=== PATIENT | male | born 1970 | race Caucasian/White ===

== ENCOUNTER 2018-06-23 12:10 | Inpatient (IN) | payer BC, SELFPAY ==
[~2018-06-23 12:10] MED LIST: Iopamidol 370 76% 100 ML VIAL ONE; Iopamidol 370 76% 50 ML VIAL FS ONE
[2018-06-23] MEDS ORDERED: Heparin 25,000 units/D5W 0 ML ONE (12:16)
[2018-06-23 12:38] LABS: #Lymphocytes 2.3 thou/uL (1.20-3.40); #Monocytes 0.7 thou/uL (0.11-0.59); #Neutrophils 8.8 thou/uL (1.40-6.50); %Basophils 0.2 % (0.0-1.0); %Eosinophils 0.3 % (0.0-10.0); %Lymphocytes 19.3 % (21.0-51.0); %Monocytes 5.6 % (0.0-10.0); %Neutrophils 74.6 % (42.0-75.0); Hemoglobin 15.5 g/dL (14.0-18.0); Mean Corpuscular Hemoglobin 29.9 pg (27.0-31.0); Mean Corpuscular Volume 87.8 fL (78.0-98.0); Mean Platelet Volume 8.2 fL (7.4-10.4); Platelet Count 325 thou/uL (130-400); RBC Distribution Width 11.8 % (11.5-14.5); Red Blood Cell (RBC) Count 5.19 mill/uL (4.70-6.10); White Blood Cell (WBC) Count 11.8 thou/uL (4.8-10.8)
[2018-06-23 12:41] LABS: Prothrombin Time 13.3 SEC (12.0-14.7)
[2018-06-23 12:42] LABS: PTT 27.4 SEC (22.9-36.1)
--- NOTE | 2018-06-23 12:42 | RAD ---
FPortable chest radiograph: 06/23/2018 COMPARISON: None available HISTORY:Chest pain FINDINGS: Heart and mediastinal contours unremarkable. The lungs appear clear. IMPRESSION: No acute findings.
[2018-06-23] MEDS ORDERED: Nitroglycerin 100MG/250ML BOT 250 ML ONE (12:49)
[2018-06-23] MEDS ORDERED: Heparin 10,000 UNITS/1 ML VIAL ONE (12:55)
[2018-06-23 12:58] LABS: ALT (SGPT) 28 U/L (8-55); AST (SGOT) 30 U/L (5-34); Albumin 4.5 g/dL (3.5-5.0); Alkaline Phosphatase 105 U/L (40-150); Anion Gap 13 mmol/L (10-20); BUN (Urea Nitrogen) 11 mg/dL (8.9-20.6); Bilirubin, Total 0.8 mg/dL (0.2-1.2); CK (CPK) 209 U/L (30-200); Calc. Creatinine Clearance 0 mL/min (70-130); Calcium 10.1 mg/dL (7.8-10.44); Carbon Dioxide 26 mmol/L (22-29); Chloride 100 mmol/L (98-107); Estimated GFR-MDRD 76; Glucose 475 mg/dL (70-105); Potassium 4.2 mmol/L (3.5-5.1); Protein, Total 7.5 g/dL (6.0-8.3); Sodium 135 mmol/L (136-145)
[2018-06-23] MEDS ORDERED: Fentanyl 100 MCG/2 ML VIAL ONE (13:05)
[2018-06-23] MEDS ORDERED: Adenosine 6 MG/2 ML VIAL ONE (13:08)
[2018-06-23] MEDS ORDERED: Aggrastat 12.5 MG/250 ML 250 ML ONE (13:08)
[2018-06-23] MEDS ORDERED: Nitroglycerin 0.4 MG TAB (25 Tab Bottle) SL PRN (13:27)
[2018-06-23] MEDS ORDERED: Morphine 4 MG/ML VIAL SLOW IVP PRN (13:27)
[2018-06-23] MEDS ORDERED: Aggrastat 12.5 MG/250 ML 250 ML IVPB SCH (13:30)
[2018-06-23] MEDS ORDERED: Sodium Chloride 0.9% 1,000 ML IV SCH (13:30)
[2018-06-23 16:41] VITALS: BMI 36.8
--- NOTE | 2018-06-23 16:54 | EKG ---
Test Reason : POST VSTENTS X 2-LAD Blood Pressure : / mmHG Vent. Rate : 108 BPM Atrial Rate : 108 BPM P-R Int : 146 ms QRS Dur : 098 ms QT Int : 372 ms P-R-T Axes : 061 094 024 degrees QTc Int : 498 ms Sinus tachycardia Rightward axis Anteroseptal infarct , possibly acute Lateral injury pattern * ACUTE [place] * Abnormal ECG No previous ECGs available Confirmed by JUAN PABLO PARKS, DR. Souza (4) on 06/23/2018 4:54:26 PM Referred By: SUKHDEEP Confirmed By:DR. Libby ALMEIDA MD
--- NOTE | 2018-06-23 19:59 | HP ---
CHIEF COMPLAINT: Chest pain. HISTORY OF PRESENT ILLNESS: Mr. Andrea is a pleasant 47-year-old white gentleman, who comes to the hospital for chest pain. He started having chest pain at 11:30 p.m. yesterday, shows up to the hospital about 1130 hours to 12 noon. EKG was done and showed ST elevations in the anterior leads with reciprocal changes already Q-waves on the anterior leads. He states that the pain started at 11:30 p.m. and it was pretty much unchanged until he came into the hospital. He was taken emergently to the catheterization lab, where he was found to have an occluded proximal LAD. This was wired and successfully stented with a drug-eluting stent. He felt improvement in his chest pain, and angiogram showed residual left circumflex disease, which was severe, and moderate disease in the mid RCA. This was left alone. He is in the ICU resting comfortably, pain-free at that time. PAST MEDICAL HISTORY: He has been told he is borderline diabetic, but he went on a diet and lost about 40 pounds and his sugars have improved. PAST SURGICAL HISTORY: 1. Hernia repair. 2. Left knee surgery. OUTPATIENT MEDICATIONS: None. ALLERGIES: NO KNOWN DRUG ALLERGIES. SOCIAL HISTORY: No alcohol, tobacco, or drugs. FAMILY HISTORY: Father had his first DE at age 45, has had 10 stents total, and has an AICD in place for weak heart. REVIEW OF SYSTEMS: A 12-point review of systems was done and was found to be negative unless stated in the history of present illness. PHYSICAL EXAMINATION: VITAL SIGNS: Temperature 98.3, pulse 115, respiratory rate 20, saturating 97% on room air, and blood pressure 136/86. GENERAL: Awake, alert, and oriented x3. No distress. HEENT: Normocephalic, atraumatic. LUNGS: Clear. CARDIOVASCULAR: S1 and S2. No S3 or S4. No murmurs or rubs. ABDOMEN: Soft. Positive bowel sounds. EXTREMITIES: No edema. SKIN: Warm and dry. LABORATORY DATA: Laboratory work was reviewed. CBC with a white count of 11, hemoglobin of 15, hematocrit of 45, platelet count of 325. Coags were reviewed. Chemistry showed a sodium of 135, otherwise unremarkable. Glucose was 475, creatinine was . CK-MB was 10. Initial troponin was 3.06, that was at noon. Albumin of 4.5. Chest x-ray showed no acute findings. EKG was reviewed. ASSESSMENT AND PLAN: 1. Acute anterior ST-elevation myocardial infarction. Late presentation at least 12 hours into the DE. 2. Severe ischemic cardiomyopathy, EF at around 20% on left ventriculogram with akinesis of the anterior and apical zuleta. 3. Elevated glucose: His sugar was in the 400 range on arrival. This could be a stress reaction. We will re-evaluate in the morning. 4. Significant family history of coronary artery disease. PLAN: 1. Aggrastat for 5 hours total, pull sheath 1 hour after Aggrastat has been done, and lie flat for 2 hours after that. 2. High dose statins. 3. Aspirin for life. 4. Brilinta for at least the next year. 5. We will start low-dose Coreg as he is tachycardic and blood pressure will allow. 6. We will start NORY inhibitor in the next 24 to 48 hours as blood pressure allows. 7. Echocardiogram pending. 8. PPI for stress ulcer prophylaxis. 9. Full code. 10. Disposition, pending clinical evolution, probably home in the next 3 to 4 days. Job ID: [id number]
[2018-06-23] MEDS: Atorvastatin Calcium 40 MG TAB PO SCH (20:22)
[2018-06-23 20:52] LABS: CKMB 92.7 ng/mL (0-6.6)
[2018-06-23] MEDS: TICAGRELOR 90 MG TABLET PO SCH (21:16)
[2018-06-24 04:59] LABS: #Lymphocytes 2.4 thou/uL (1.20-3.40); #Monocytes 1.3 thou/uL (0.11-0.59); #Neutrophils 9.3 thou/uL (1.40-6.50); %Basophils 0.2 % (0.0-1.0); %Eosinophils 0.3 % (0.0-10.0); %Lymphocytes 18.5 % (21.0-51.0); Hemoglobin 14.4 g/dL (14.0-18.0); Mean Corpuscular HGB CONC 33.8 g/dL (32.0-36.0); Mean Corpuscular Hemoglobin 29.6 pg (27.0-31.0); Mean Corpuscular Volume 87.5 fL (78.0-98.0); Mean Platelet Volume 8.3 fL (7.4-10.4); Platelet Count 293 thou/uL (130-400); Red Blood Cell (RBC) Count 4.87 mill/uL (4.70-6.10); White Blood Cell (WBC) Count 13.1 thou/uL (4.8-10.8)
[2018-06-24 05:25] LABS: ALT (SGPT) 41 U/L (8-55); AST (SGOT) 86 U/L (5-34); Albumin 4.1 g/dL (3.5-5.0); Alkaline Phosphatase 93 U/L (40-150); Anion Gap 15 mmol/L (10-20); BUN (Urea Nitrogen) 10 mg/dL (8.9-20.6); Bilirubin, Total 1.2 mg/dL (0.2-1.2); Calc. Creatinine Clearance 207 mL/min (70-130); Calcium 9.4 mg/dL (7.8-10.44); Carbon Dioxide 22 mmol/L (22-29); Cardiac Risk 5.5 (Less than 4.5); Chloride 102 mmol/L (98-107); Cholesterol 172 mg/dl (< 200 Desired); Estimated GFR-MDRD Greater than 90; Globulin 2.9 g/dL (2.4-3.5); Glucose 311 mg/dL (70-105); HDL Cholesterol 31 mg/dL (>60 Neg Risk); LDL Cholesterol, Calculated 118 mg/dL; Potassium 3.8 mmol/L (3.5-5.1); Sodium 135 mmol/L (136-145); Triglycerides 115 mg/dL (Less than 150)
[2018-06-24 05:53] LABS: CKMB 39.2 ng/mL (0-6.6); Critical Call CKMB RESULT DECREASING
[2018-06-24] MEDS: Aspirin Chewable 81 MG TAB PO SCH (08:22)
[2018-06-24] MEDS: Carvedilol 3.125 MG TAB PO SCH ×2 (08:22→18:09)
[2018-06-24] MEDS: TICAGRELOR 90 MG TABLET PO SCH (08:22)
[2018-06-24] MEDS ORDERED: Furosemide 40 MG/4 ML VIAL SLOW IVP SCH (08:45)
--- NOTE | 2018-06-24 12:39 | PDOC.CTH ---
Cardiology Progress Note - Subjective Doing well. No chest pain. - Objective Vital Signs Temp Pulse Ox 06/24/18 07:40 100 06/24/18 07:00 97.6 F 06/24/18 04:00 97.8 F Weight 271 lb 2.697 oz 06/23/18 06/24/18 06/25/18 06:59 06:59 06:59 Intake Total 1523 480 Output Total 2475 820 Balance -952 -340 - Physical Examination General/Neuro: alert & oriented x3, NAD Neck: no JVD present Lungs: unlabored respirations Heart: RRR Abdomen: NT/ND Extremities: other: (no edema) - Telemetry Telemetry Rhythm: NSR - Labs Result Diagrams: 06/24/18 04:01 06/24/18 04:01 Troponin/CKMB CK-MB (CK-2) 39.2 ng/mL (0-6.6) H* 06/24/18 04:01 Troponin I 24.932 ng/mL (< 0.028) H* 06/24/18 04:01 - Assessment/Plan 1. Acute anterior STEMI, late presentation. 2. New onset diabetes type 2 3. HTN 4. Ischemic CM EF, severely reduced EF. PLAN: - Continue current regimen. - Sliding scale insulin for now. - Will get HgA1c. - Will decide on Insulin vs oral hypoglycemics depending on HgA1c. - Will transfer to telemetry floor.
[2018-06-24] MEDS ORDERED: Dextrose 5% in Water 1,000 ML IV PRN (12:52)
[2018-06-24] MEDS ORDERED: Dextrose 50% Abboject 50 ML SYRINGE SLOW IVP PRN (12:52)
[2018-06-24 14:04] LABS: Hemoglobin A1c 10.8 % (4.0-6.0)
[2018-06-24] MEDS: Acetaminophen 325 MG TAB PO PRN (16:27)
--- NOTE | 2018-06-24 19:39 | CON ---
DATE OF CONSULTATION: 06/24/2018 SERVICE: Pulmonary Medicine. REASON FOR CONSULTATION: ICU patient. HISTORY OF PRESENT ILLNESS: The patient is a 47-year-old white male with past medical history significant for diabetes. Apparently, this was diagnosed several years ago and the patient made significant lifestyle modifications and his sugars became under better control. Ultimately, about a week and a half ago, he started having intermittent chest discomfort which continued to go away. At 1130 two nights ago, it became much more severe all of a sudden. He kept thinking it was going to go away, but ultimately presented to the hospital about 12 hours later and was discovered to have an ST-elevation CA. He was emergently taken down for cardiac catheterization. As soon as the stent was deployed, he had resolution in his chest discomfort. He denies any current nausea, vomiting, shortness of breath, diaphoresis, abdominal discomfort, chest discomfort, or cough other than a small cough which seems to be improving. He does not have any orthopnea or paroxysmal nocturnal dyspnea. Prior to this, he did not have any known heart issues. PAST MEDICAL HISTORY: 1. Type 2 diabetes mellitus. 2. Coronary artery disease. 3. Obstructive sleep apnea. PAST SURGICAL HISTORY: 1. Herniorrhaphy. 2. Left knee surgery. 3. PCI with DINA to the LAD. FAMILY HISTORY: Noncontributory. SOCIAL HISTORY: Negative for alcohol, tobacco, or illicit drug use. He has no exposure to chemicals, dust, asbestos, or tuberculosis. REVIEW OF SYSTEMS: General; head, ears, eyes, nose, throat; cardiovascular; respiratory; GI; ; musculoskeletal; neurologic; and skin are negative except as mentioned in the HPI. PHYSICAL EXAMINATION: VITAL SIGNS: Afebrile, pulse 107, blood pressure 127/81, respirations 26, and saturation 97% on room air. GENERAL: The patient is awake and alert, in no apparent distress. LUNGS: Excellent air entry without any prolonged expiratory phase or wheezing. Minimal dependent crackles are noted. HEART: Normal rate and regular. ABDOMEN: Soft, nontender, and nondistended. Bowel sounds are positive. MUSCULOSKELETAL: No cyanosis or clubbing. Trace pitting in the bilateral lower extremities. NEUROLOGIC: Grossly nonfocal. LABORATORY DATA: WBC 13.1, hemoglobin 14.4, and platelets 293,000. INR 1.0. Basic metabolic profile and liver function studies are otherwise unremarkable. Troponin has gone up to 74, but is now downtrending to 24. BNP 346. TSH falls within the normal limits. Blood sugars are ranging in the 300s and 400s. ASSESSMENT: 1. ST-elevation myocardial infarction, status post percutaneous coronary intervention with drug-eluting stent to the LAD. 2. Acute systolic heart failure. 3. Obstructive sleep apnea, history of, not currently using therapy. 4. Type 2 diabetes mellitus, suspected. DISCUSSION AND PLAN: I will get a hemoglobin A1c. I will initiate some sliding scale insulin. After another 24 hours once the contrast is out of his system, we will consider initiating metformin, particular if A1c is elevated. When he gets out of the hospital, he will need a repeat polysomnogram. Pulmonary/Critical Care will continue to follow in this location. Hopefully, the heart muscle will strengthen up as time goes on. The cardiac silhouette on the chest x-ray was really not that large, so I am hoping all of this is an acute event that can improve. Time will tell however. 70 minutes have been devoted to this patient in various activities. I personally reviewed all imaging studies and laboratory data noted within this document. For fifty percent of this time, I was interacting with the patient at the bedside or coordinating care with the care team. For the remainder of the time I was immediately available to the patient in the hospital unit. Job ID: [id number] MTDD
[2018-06-24] MEDS: Atorvastatin Calcium 40 MG TAB PO SCH (20:53)
[2018-06-24] MEDS: Apixaban 5 MG TAB PO SCH (20:53)
[2018-06-24] MEDS: Insulin Regular 300 UNITS/3 ML VIAL SC PRN (20:53)
--- NOTE | 2018-06-24 21:23 | EKG ---
Test Reason : Blood Pressure : / mmHG Vent. Rate : 106 BPM Atrial Rate : 106 BPM P-R Int : 136 ms QRS Dur : 092 ms QT Int : 330 ms P-R-T Axes : 053 062 049 degrees QTc Int : 438 ms Sinus tachycardia Low voltage QRS Anteroseptal infarct (cited on or before 23-JUN-2018) T wave abnormality, consider lateral ischemia * ACUTE [place] * Abnormal ECG When compared with ECG of 23-JUN-2018 14:25, Serial changes of evolving Anteroseptal infarct Present Confirmed by JUAN PABLO PARKS, DR. Souza (4) on 06/24/2018 9:22:51 PM Referred By: SUKHDEEP Confirmed By:DR. Libby ALMEIDA MD
[2018-06-25 06:50] LABS: #Eosinphils 0.1 thou/uL (0.0-0.7); #Lymphocytes 3.1 thou/uL (1.20-3.40); #Monocytes 1.2 thou/uL (0.11-0.59); #Neutrophils 8.7 thou/uL (1.40-6.50); %Basophils 0.1 % (0.0-1.0); %Eosinophils 0.6 % (0.0-10.0); %Lymphocytes 23.5 % (21.0-51.0); %Monocytes 8.9 % (0.0-10.0); %Neutrophils 66.9 % (42.0-75.0); Hemoglobin 14.1 g/dL (14.0-18.0); Mean Corpuscular HGB CONC 33.9 g/dL (32.0-36.0); Mean Corpuscular Hemoglobin 30.4 pg (27.0-31.0); Mean Corpuscular Volume 89.8 fL (78.0-98.0); Mean Platelet Volume 8.2 fL (7.4-10.4); Platelet Count 272 thou/uL (130-400); RBC Distribution Width 11.9 % (11.5-14.5); Red Blood Cell (RBC) Count 4.65 mill/uL (4.70-6.10)
[2018-06-25] MEDS: Insulin Regular 300 UNITS/3 ML VIAL SC PRN ×4 (06:53→22:36)
[2018-06-25 07:17] LABS: Anion Gap 14 mmol/L (10-20); BUN (Urea Nitrogen) 14 mg/dL (8.9-20.6); Calc. Creatinine Clearance 210 mL/min (70-130); Calcium 9.1 mg/dL (7.8-10.44); Carbon Dioxide 23 mmol/L (22-29); Chloride 100 mmol/L (98-107); Estimated GFR-MDRD Greater than 90; Glucose 287 mg/dL (70-105); Potassium 3.5 mmol/L (3.5-5.1); Sodium 133 mmol/L (136-145)
[2018-06-25] MEDS: Apixaban 5 MG TAB PO SCH ×2 (08:50→20:52)
[2018-06-25] MEDS: Carvedilol 3.125 MG TAB PO SCH ×2 (08:51→17:24)
[2018-06-25] MEDS: Aspirin Chewable 81 MG TAB PO SCH (08:51)
[2018-06-25] MEDS: Clopidogrel Bisulfate 75 MG TAB PO SCH (08:51)
[2018-06-25] MEDS ORDERED: Potassium Chloride 20 MEQ TAB PO SCH (09:15)
[2018-06-25] MEDS: Amiodarone 450 MG, Admixture Fee 1 EACH in Dextrose 5% in Water 250 ML IVPB SCH ×2 (10:03→17:24)
--- NOTE | 2018-06-25 10:09 | PRG ---
DATE OF SERVICE: 06/25/2018 SERVICE: Pulmonary Medicine. INTERVAL HISTORY: The patient is doing absolutely fantastic from respiratory standpoint. He denies any chest pain, fevers, chills, shortness of breath, nausea, or vomiting. He has been able to walk on the level without difficulty. That being said, when he takes off at a brisk pace, he can feel the heaviness/shortness of breath. As such, he tends to pace himself a touch. PHYSICAL EXAMINATION: VITAL SIGNS: Afebrile, pulse 100, blood pressure 131/85, respirations 16, saturation 99% on room air. GENERAL: The patient is awake and alert, in no apparent distress. LUNGS: Excellent air entry without any prolonged expiratory phase or wheezing. HEART: Normal rate and regular. ABDOMEN: Soft, nontender, nondistended. Bowel sounds are positive. MUSCULOSKELETAL: No cyanosis or clubbing. No pitting in the bilateral lower extremities. NEUROLOGIC: Grossly nonfocal. LABORATORY DATA: WBC 13.0, hemoglobin 14.1, and platelets 272,000. INR 1.0. Basic metabolic profile is otherwise unremarkable with potassium of 3.5. Hemoglobin A1c 10.8. Blood sugar is ranging from 287 to 344. IMAGING: Echocardiogram demonstrates 20% to 25% ejection fraction with 1/3 diastolic dysfunction. ASSESSMENT: 1. ST-elevation myocardial infarction, status post percutaneous coronary intervention with drug-eluting stent to the LAD. 2. Acute systolic heart failure. 3. Chronic diastolic heart failure. 4. Type 2 diabetes mellitus. 5. Obstructive sleep apnea, not currently on therapy. DISCUSSION AND PLAN: From purely respiratory perspective, the patient is stable for transition out of the hospital. I will give him a dose of potassium today. I would like for him to follow up with me in the outpatient setting, so that we can reinvestigate whether or not sleep apnea still exists now that he has lost significant amounts of weight. We will arrange for this to happen within 2 to 4 weeks. Job ID: [id number]
--- NOTE | 2018-06-25 14:37 | EKG ---
Test Reason : AFIB Blood Pressure : / mmHG Vent. Rate : 154 BPM Atrial Rate : 126 BPM P-R Int : 000 ms QRS Dur : 094 ms QT Int : 288 ms P-R-T Axes : 000 085 -15 degrees QTc Int : 461 ms Atrial fibrillation with rapid ventricular response Anteroseptal infarct (cited on or before 23-JUN-2018) T wave abnormality, consider inferior ischemia or digitalis effect * ACUTE [place] * Abnormal ECG When compared with ECG of 24-JUN-2018 07:18, Atrial fibrillation has replaced Sinus rhythm Serial changes of Anteroseptal infarct Present Confirmed by JUAN PABLO PARKS, DR. Souza (4) on 06/25/2018 2:37:06 PM Referred By: SUKHDEEP Confirmed By:DR. Libby ALMEIDA MD
--- NOTE | 2018-06-25 16:50 | PDOC.CTH ---
Cardiology Progress Note - Subjective He is feeling better today. He walked with PT without issues. No more chest pain. - Objective Vital Signs Temp Pulse Resp BP Pulse Ox 06/25/18 15:29 98.4 F 98 16 135/83 95 06/25/18 11:38 97.7 F 105 H 16 118/78 97 06/25/18 08:01 97.6 F 103 H 16 112/71 97 06/25/18 08:00 97 Weight 271 lb 2.697 oz 06/24/18 06/25/18 06/26/18 06:59 06:59 06:59 Intake Total 1523 1680 480 Output Total 2475 4070 Balance -952 -2390 480 - Physical Examination General/Neuro: alert & oriented x3, NAD Neck: no JVD present Lungs: CTA, unlabored respirations Heart: RRR Abdomen: NT/ND Extremities: other: (no edema) - Telemetry Telemetry Rhythm: Afib --> NSR - Labs Result Diagrams: 06/25/18 04:59 06/25/18 04:59 Troponin/CKMB CK-MB (CK-2) 39.2 ng/mL (0-6.6) H* 06/24/18 04:01 Troponin I 24.932 ng/mL (< 0.028) H* 06/24/18 04:01 - Assessment/Plan 1. Acute anterior STEMI, late presentation. 2. New onset diabetes type 2 3. HTN 4. Ischemic CM EF, severely reduced EF. 5. LV thrombus 6. Paroxysmal afib, new onset post [place]. PLAN: - Eliquis 5 mg BID. - Sliding scale insulin for now. - HgA1c at 10. Will start basal insulin and metformin. - Amiodarone PO load start tomorrow, Continue drip today. - Will need lifevest before discharge. - ASA/Plavix/Eliquis for 1 month then Eliquis and Plavix only. - Continue to monitor.
[2018-06-25] MEDS: Atorvastatin Calcium 40 MG TAB PO SCH (20:52)
[2018-06-26 06:15] LABS: #Eosinphils 0.1 thou/uL (0.0-0.7); #Lymphocytes 3.2 thou/uL (1.20-3.40); #Monocytes 0.9 thou/uL (0.11-0.59); #Neutrophils 8.6 thou/uL (1.40-6.50); %Basophils 0.3 % (0.0-1.0); %Eosinophils 0.9 % (0.0-10.0); %Lymphocytes 24.9 % (21.0-51.0); %Neutrophils 66.9 % (42.0-75.0); Hemoglobin 13.6 g/dL (14.0-18.0); Mean Corpuscular HGB CONC 34.3 g/dL (32.0-36.0); Mean Corpuscular Hemoglobin 30.3 pg (27.0-31.0); Mean Corpuscular Volume 88.4 fL (78.0-98.0); Mean Platelet Volume 8.1 fL (7.4-10.4); Platelet Count 292 thou/uL (130-400); RBC Distribution Width 11.7 % (11.5-14.5); White Blood Cell (WBC) Count 12.9 thou/uL (4.8-10.8)
[2018-06-26] MEDS: Insulin Regular 300 UNITS/3 ML VIAL SC PRN ×3 (06:32→17:26)
[2018-06-26 06:34] LABS: Anion Gap 15 mmol/L (10-20); BUN (Urea Nitrogen) 10 mg/dL (8.9-20.6); Calc. Creatinine Clearance 212 mL/min (70-130); Calcium 9.2 mg/dL (7.8-10.44); Carbon Dioxide 23 mmol/L (22-29); Chloride 99 mmol/L (98-107); Estimated GFR-MDRD Greater than 90; Glucose 251 mg/dL (70-105); Potassium 3.5 mmol/L (3.5-5.1); Sodium 133 mmol/L (136-145)
[2018-06-26] MEDS: Clopidogrel Bisulfate 75 MG TAB PO SCH (08:29)
[2018-06-26] MEDS: Amiodarone 450 MG, Admixture Fee 1 EACH in Dextrose 5% in Water 250 ML IVPB SCH (08:29)
[2018-06-26] MEDS: Apixaban 5 MG TAB PO SCH ×2 (08:29→21:23)
[2018-06-26] MEDS: Aspirin Chewable 81 MG TAB PO SCH (08:29)
[2018-06-26] MEDS: Lisinopril 2.5 MG TAB PO SCH (08:29)
[2018-06-26] MEDS: Carvedilol 3.125 MG TAB PO SCH ×2 (08:29→16:37)
[2018-06-26] MEDS ORDERED: Insulin Glargine 10 UNITS in Pre-Filled Syringe SC SCH (09:00)
[2018-06-26] MEDS: metFORMIN 500 MG TAB PO SCH ×2 (10:36→16:37)
[2018-06-26] MEDS ORDERED: Amiodarone 200 MG TAB PO SCH (14:30)
--- NOTE | 2018-06-26 14:54 | PDOC.CTH ---
Cardiology Progress Note - Subjective No complaints. Feeling much better overall. Denies any CP, SOB, LEE or palpitations. - Objective Vital Signs Temp Pulse Pulse Pulse Resp BP BP 06/26/18 13:14 99 92 134/87 06/26/18 12:00 98.1 F 90 18 06/26/18 08:30 06/26/18 08:29 97 129/81 06/26/18 07:35 98.5 F 95 20 06/26/18 04:00 99.7 F H 87 18 BP BP Pulse Ox 06/26/18 13:14 132/76 06/26/18 12:00 131/88 96 06/26/18 08:30 99 06/26/18 08:29 06/26/18 07:35 135/85 99 06/26/18 04:00 130/87 98 Weight 271 lb 2.697 oz 06/25/18 06/26/18 06/27/18 06:59 06:59 06:59 Intake Total 1680 2367 Output Total 4070 2000 Balance -2390 367 - Physical Examination General/Neuro: alert & oriented x3 Neck: no JVD present Lungs: CTA Heart: RRR Abdomen: NT/ND - Telemetry Telemetry Rhythm: SR - Labs Result Diagrams: 06/26/18 05:38 06/26/18 05:38 Troponin/CKMB CK-MB (CK-2) 39.2 ng/mL (0-6.6) H* 06/24/18 04:01 Troponin I 24.932 ng/mL (< 0.028) H* 06/24/18 04:01 - Assessment/Plan 1. Acute anterior STEMI, late presentation. 2. New onset diabetes type 2 3. HTN 4. ICMO - EF <35%. 5. LV thrombus 6. Paroxysmal afib, new onset post [place] Start po Amio to load. Then d/c IV Amio. Continue to increase activity. Hopefully home in next 48 hours. Pt seen and examined. Add Sound consult to assist with DM Ambulate On BB, Statin, ASA, plavix
[2018-06-26] MEDS ORDERED: HumuLIN 70/30 (300 UNITS/3 ML VIAL) SC SCH ×2 (21:00)
[2018-06-26] MEDS: Atorvastatin Calcium 40 MG TAB PO SCH (21:23)
[2018-06-26] MEDS: Amiodarone 200 MG TAB PO SCH (21:23)
[2018-06-26] MEDS: Acetaminophen 325 MG TAB PO PRN (23:24)
[2018-06-27 06:01] LABS: #Eosinphils 0.2 thou/uL (0.0-0.7); #Lymphocytes 3.3 thou/uL (1.20-3.40); #Monocytes 1.3 thou/uL (0.11-0.59); #Neutrophils 9.3 thou/uL (1.40-6.50); %Basophils 0.1 % (0.0-1.0); %Eosinophils 1.2 % (0.0-10.0); %Lymphocytes 23.7 % (21.0-51.0); %Monocytes 9.2 % (0.0-10.0); %Neutrophils 65.7 % (42.0-75.0); Hemoglobin 13.1 g/dL (14.0-18.0); Mean Corpuscular HGB CONC 34.2 g/dL (32.0-36.0); Mean Corpuscular Hemoglobin 30.3 pg (27.0-31.0); Mean Corpuscular Volume 88.8 fL (78.0-98.0); Mean Platelet Volume 8.3 fL (7.4-10.4); Platelet Count 309 thou/uL (130-400); RBC Distribution Width 11.7 % (11.5-14.5); Red Blood Cell (RBC) Count 4.31 mill/uL (4.70-6.10); White Blood Cell (WBC) Count 14.1 thou/uL (4.8-10.8)
[2018-06-27 06:22] LABS: Anion Gap 13 mmol/L (10-20); BUN (Urea Nitrogen) 11 mg/dL (8.9-20.6); Calc. Creatinine Clearance 171 mL/min (70-130); Calcium 9.2 mg/dL (7.8-10.44); Carbon Dioxide 27 mmol/L (22-29); Chloride 100 mmol/L (98-107); Estimated GFR-MDRD 88; Glucose 205 mg/dL (70-105); Potassium 3.6 mmol/L (3.5-5.1); Sodium 136 mmol/L (136-145)
[2018-06-27] MEDS: Insulin Regular 300 UNITS/3 ML VIAL SC PRN ×3 (06:28→17:35)
--- NOTE | 2018-06-27 07:31 | PDOC.PN ---
- Subjective Encounter Start Date: 06/26/18 Encounter Start Time: 10:00 Subjective: pt up in bed no complains, we were consulted about his uncontrolled dm -: pt on his own lost weight and has been off of his DM meds -: his hbg alc was 10.8. - Objective Vital Signs & Weight: Vital Signs (12 hours) Temp Pulse Resp BP Pulse Ox 06/27/18 03:14 98.1 F 81 18 119/76 99 06/26/18 23:44 98.0 F 91 18 96 06/26/18 20:16 99.0 F 94 18 122/75 96 06/26/18 20:00 96 Weight Weight 272 lb Most Recent Monitor Data Heart Rate from ECG 102 NIBP 127/86 NIBP BP-Mean 99 Respiration from ECG 17 SpO2 92 I&O: 06/26/18 06/27/18 06/28/18 06:59 06:59 06:59 Intake Total 2367 1976 Output Total 1999 625 Balance 367 1351 Result Diagrams: 06/27/18 05:24 06/27/18 05:24 Additional Labs: Accuchecks 06/27/18 06/26/18 06/26/18 05:53 20:52 16:52 POC Glucose 216 H 338 H 264 H 06/26/18 10:44 POC Glucose 274 H Phys Exam - Physical Examination Neck: no nodes, no JVD, supple, full ROM Respiratory: no wheezing, no rales, no rhonchi, wheezing present, clear to auscultation bilateral Cardiovascular: RRR, no significant murmur, no rub, gallop, irregular Gastrointestinal: soft, non-tender, no distention, positive bowel sounds Dx/Plan (1) Diabetes Code(s): E11.9 - TYPE 2 DIABETES MELLITUS WITHOUT COMPLICATIONS Status: Acute (2) HTN (hypertension) Code(s): I10 - ESSENTIAL (PRIMARY) HYPERTENSION Status: Acute (3) Obesity Code(s): E66.9 - OBESITY, UNSPECIFIED Status: Acute (4) LV (left ventricular) mural thrombus Code(s): I51.3 - INTRACARDIAC THROMBOSIS, NOT ELSEWHERE CLASSIFIED Status: Acute - Plan given pt's financial limitation will start him on humulin 70/30 -: will also put him on ss insulin. asked nursing staff to teach pt -: to administer insulin. -: pt on eliquis for thrombus * . Review of Systems - Review of Systems Respiratory: negative: Cough, Dry, Shortness of Breath, Hemoptysis, SOB with Excertion, Pleuritic Pain, Sputum, Wheezing Cardiovascular: negative: chest pain, palpitations, orthopnea, paroxysmal nocturnal dyspnea, edema, light headedness, other Gastrointestinal: negative: Nausea, Vomiting, Abdominal Pain, Diarrhea, Constipation, Melena, Hematochezia, Other - Medications/Allergies Allergies/Adverse Reactions: Allergies Allergy/AdvReac Type Severity Reaction Status Date / Time No Known Allergies Allergy Unverified 06/23/18 14:47 Medications: Current Medications Acetaminophen (Tylenol) 650 mg PO Q4H PRN PRN Reason: Pain Last Admin: 06/26/18 23:24 Dose: 650 mg Amiodarone HCl (Cordarone) 400 mg PO BID [facility] Last Admin: 06/26/18 21:23 Dose: 400 mg Apixaban (Eliquis) 5 mg PO BID [facility] Last Admin: 06/26/18 21:23 Dose: 5 mg Aspirin (Aspirin Chewable) 81 mg PO DAILY [facility] Last Admin: 06/26/18 08:29 Dose: 81 mg Atorvastatin Calcium (Lipitor) 80 mg PO HS [facility] Last Admin: 06/26/18 21:23 Dose: 80 mg Carvedilol (Coreg) 3.125 mg PO BID-WM [facility] Last Admin: 06/26/18 16:37 Dose: 3.125 mg Clopidogrel Bisulfate (Plavix) 75 mg PO DAILY [facility] Last Admin: 06/26/18 08:29 Dose: 75 mg Dextrose/Water (Dextrose 50%) 25 gm SLOW IVP PRN PRN PRN Reason: Hypoglycemia Glucagon (Glucagon) 1 mg IM PRN PRN PRN Reason: Hypoglycemia Dextrose/Water (D5w) 1,000 mls @ 0 mls/hr IV .Q0M PRN PRN Reason: Hypoglycemia Insulin Human Isoph/Insulin Regular (Humulin 70/30) 10 units SC BID [facility] Last Admin: 06/26/18 21:41 Dose: 10 unit Insulin Human Regular (Humulin R) 0 units SC .MILD SLIDING SCALE PRN PRN Reason: Mild Correctional Scale Last Admin: 06/27/18 06:28 Dose: 3 unit Lisinopril (Zestril) 2.5 mg PO DAILY [facility] Last Admin: 06/26/18 08:29 Dose: 2.5 mg Metformin HCl (Glucophage) 500 mg PO BID-WM [facility] Last Admin: 06/26/18 16:37 Dose: 500 mg Morphine Sulfate (Morphine) 2 mg SLOW IVP Q4H PRN PRN Reason: Moderate Chest Pain (4-6) Last Admin: 06/23/18 18:00 Dose: 2 mg Nitroglycerin (Nitrostat) 0.4 mg SL Q5MIN PRN PRN Reason: Chest Pain
[2018-06-27] MEDS: Lisinopril 2.5 MG TAB PO SCH (08:50)
[2018-06-27] MEDS: metFORMIN 500 MG TAB PO SCH ×2 (08:50→17:35)
[2018-06-27] MEDS: Carvedilol 3.125 MG TAB PO SCH ×2 (08:50→17:35)
[2018-06-27] MEDS: Aspirin Chewable 81 MG TAB PO SCH (08:51)
[2018-06-27] MEDS: Amiodarone 200 MG TAB PO SCH ×2 (08:51→21:00)
[2018-06-27] MEDS: HumuLIN 70/30 (300 UNITS/3 ML VIAL) SC SCH ×2 (08:51→20:59)
[2018-06-27] MEDS: Clopidogrel Bisulfate 75 MG TAB PO SCH (08:51)
[2018-06-27] MEDS: Apixaban 5 MG TAB PO SCH ×2 (08:51→21:00)
[2018-06-27] MEDS: Acetaminophen 325 MG TAB PO PRN (11:38)
--- NOTE | 2018-06-27 14:07 | PDOC.CTH ---
Cardiology Progress Note - Subjective Doing well. No complaints today. - Objective Vital Signs Temp Pulse Pulse Pulse Resp BP BP 06/27/18 13:06 90 83 136/85 122/72 06/27/18 11:38 98.5 F 83 20 06/27/18 08:50 80 06/27/18 08:00 06/27/18 07:53 98.1 F 80 20 06/27/18 03:14 98.1 F 81 18 BP Pulse Ox 06/27/18 13:06 06/27/18 11:38 140/64 96 06/27/18 08:50 06/27/18 08:00 93 L 06/27/18 07:53 112/66 93 L 06/27/18 03:14 119/76 99 Weight 272 lb 06/26/18 06/27/18 06/28/18 06:59 06:59 06:59 Intake Total 2367 1976 480 Output Total 1999 625 225 Balance 367 1351 255 - Physical Examination General/Neuro: alert & oriented x3 Neck: no JVD present Lungs: CTA Heart: RRR Abdomen: NT/ND - Telemetry Telemetry Rhythm: SR - Labs Result Diagrams: 06/27/18 05:24 06/27/18 05:24 Troponin/CKMB CK-MB (CK-2) 39.2 ng/mL (0-6.6) H* 06/24/18 04:01 Troponin I 24.932 ng/mL (< 0.028) H* 06/24/18 04:01 - Assessment/Plan 1. Acute anterior STEMI, late presentation. 2. New onset diabetes type 2 3. HTN 4. ICMO - EF <35%. 5. LV thrombus 6. Paroxysmal afib, new onset post [place] Stable. On Amio, ASA/Plavix/Eliquis, statin, lisinopril and Coreg. Hopefully home tomorrow. [employer] has been consulted and patient is unfunded. Requesting money up front prior to LifeVest placement. Per nurse patient and informed and making decision.
[2018-06-27] MEDS: Atorvastatin Calcium 40 MG TAB PO SCH (21:00)
--- NOTE | 2018-06-27 23:16 | PDOC.PN ---
- Subjective Encounter Start Date: 06/27/18 Encounter Start Time: 10:00 - Objective Vital Signs & Weight: Vital Signs (12 hours) Temp Pulse Pulse Pulse Resp BP BP 06/27/18 20:04 98.2 F 88 16 06/27/18 20:00 06/27/18 15:51 97.5 F L 86 18 06/27/18 13:06 90 83 136/85 122/72 06/27/18 11:38 98.5 F 83 20 BP Pulse Ox 06/27/18 20:04 121/73 98 06/27/18 20:00 98 06/27/18 15:51 132/70 98 06/27/18 13:06 06/27/18 11:38 140/64 96 Weight Weight 272 lb Most Recent Monitor Data Heart Rate from ECG 102 NIBP 127/86 NIBP BP-Mean 99 Respiration from ECG 17 SpO2 92 I&O: 06/26/18 06/27/18 06/28/18 06:59 06:59 06:59 Intake Total 2367 1976 1440 Output Total 1999 625 225 Balance 367 1351 1215 Result Diagrams: 06/27/18 05:24 06/27/18 05:24 Additional Labs: Accuchecks 06/27/18 06/27/18 06/27/18 20:23 16:47 10:43 POC Glucose 297 H 224 H 236 H 06/27/18 05:53 POC Glucose 216 H Dx/Plan (1) Diabetes Code(s): E11.9 - TYPE 2 DIABETES MELLITUS WITHOUT COMPLICATIONS Status: Acute (2) HTN (hypertension) Code(s): I10 - ESSENTIAL (PRIMARY) HYPERTENSION Status: Acute (3) Obesity Code(s): E66.9 - OBESITY, UNSPECIFIED Status: Acute (4) LV (left ventricular) mural thrombus Code(s): I51.3 - INTRACARDIAC THROMBOSIS, NOT ELSEWHERE CLASSIFIED Status: Acute - Plan * .
[2018-06-28 05:58] LABS: #Basophils 0.1 thou/uL (0.0-0.2); #Eosinphils 0.2 thou/uL (0.0-0.7); #Monocytes 1.2 thou/uL (0.11-0.59); #Neutrophils 10.1 thou/uL (1.40-6.50); %Basophils 0.5 % (0.0-1.0); %Eosinophils 1.2 % (0.0-10.0); %Lymphocytes 20.5 % (21.0-51.0); %Neutrophils 69.9 % (42.0-75.0); Hemoglobin 12.9 g/dL (14.0-18.0); Mean Corpuscular Hemoglobin 30.7 pg (27.0-31.0); Mean Corpuscular Volume 90.1 fL (78.0-98.0); Platelet Count 344 thou/uL (130-400); RBC Distribution Width 11.7 % (11.5-14.5); Red Blood Cell (RBC) Count 4.22 mill/uL (4.70-6.10); White Blood Cell (WBC) Count 14.4 thou/uL (4.8-10.8)
[2018-06-28] MEDS: Insulin Regular 300 UNITS/3 ML VIAL SC PRN ×3 (06:00→16:59)
[2018-06-28 06:22] LABS: Anion Gap 14 mmol/L (10-20); BUN (Urea Nitrogen) 12 mg/dL (8.9-20.6); Calc. Creatinine Clearance 185 mL/min (70-130); Calcium 9.1 mg/dL (7.8-10.44); Carbon Dioxide 22 mmol/L (22-29); Chloride 103 mmol/L (98-107); Estimated GFR-MDRD Greater than 90; Glucose 169 mg/dL (70-105); Potassium 3.6 mmol/L (3.5-5.1); Sodium 135 mmol/L (136-145)
[2018-06-28] MEDS: Acetaminophen 325 MG TAB PO PRN (06:30)
[2018-06-28] MEDS: Amiodarone 200 MG TAB PO SCH (09:36)
[2018-06-28] MEDS: Apixaban 5 MG TAB PO SCH (09:36)
[2018-06-28] MEDS: Aspirin Chewable 81 MG TAB PO SCH (09:36)
[2018-06-28] MEDS: Lisinopril 2.5 MG TAB PO SCH (09:36)
[2018-06-28] MEDS: Carvedilol 3.125 MG TAB PO SCH ×2 (09:36→16:13)
[2018-06-28] MEDS: Clopidogrel Bisulfate 75 MG TAB PO SCH (09:36)
[2018-06-28] MEDS: metFORMIN 500 MG TAB PO SCH ×2 (09:36→16:12)
[2018-06-28] MEDS: HumuLIN 70/30 (300 UNITS/3 ML VIAL) SC SCH (09:37)
[2018-06-28 15:51] VITALS: BP 122/73; TEMP 98.3
--- NOTE | 2018-06-28 18:34 | DIS ---
DATE OF ADMISSION: 06/23/2018 DATE OF DISCHARGE: 06/28/2018 DISCHARGING PHYSICIAN: Royal Gimenez MD. PRIMARY DIAGNOSES: 1. Acute anterior ST-segment elevation myocardial infarction. 2. Ischemic cardiomyopathy, ejection fraction of 20% to 25%. 3. New onset type 2 diabetes. 4. Hypertension. 5. Left ventricular thrombus. 6. Paroxysmal atrial fibrillation, post mild atrial fibrillation most likely. PROCEDURES PERFORMED: 1. Left heart catheterization. 2. Internal Medicine consultation. 3. Echocardiogram. 4. Chest x-ray. DISCHARGE MEDICATIONS: 1. Amiodarone 400 mg b.i.d. for 7 days and then 200 mg daily. 2. Eliquis 5 mg b.i.d. 3. Aspirin 81 a day. 4. Atorvastatin 80 mg at bedtime. 5. Carvedilol 3.125 b.i.d. 6. Plavix 75 mg a day. 7. Humulin 70/30, 12 units subcu b.i.d. 8. Lisinopril 2.5 mg a day. 9. Metformin 500 mg b.i.d. 10. Nitroglycerin sublingual p.r.n. 0.4 mg sublingual every 5 minutes p.r.n. chest pain. SUMMARY: Mr. Andrea is a pleasant 47-year-old white gentleman who came to the hospital for chest pain. He was taken emergently to the catheterization lab as he had ST elevations on EKG and was found to have an occluded LAD. This was opened up and stented successfully with a drug-eluting stent. He eventually had an echocardiogram that showed an LV thrombus. So, he was started on Eliquis, and his Brilinta was switched to Plavix and kept on a baby aspirin. He eventually went into atrial fibrillation with RVR. This was controlled with an amiodarone drip and eventually, switched to p.o. load. His echo showed an EF of 20% to 25% with apical thrombus. He did well postoperatively. He walked around the unit with no issues with physical therapy, doing well. No chest pain. He has residual left circumflex disease. He was discharged to home in a stable condition. Followup appointments in 2 to 4 weeks with myself. LifeVest set up before discharge today for ischemic cardiomyopathy. Over 45 minutes were spent at bedside for discharge. Job ID: [id number]
== END 2018-06-28 19:14 | disposition home or self-care (01) | DRG 246 ==
LOC: ERS 12:10 → CCU 12:29 → CCL 12:29 → CCU 12:44 → 2SE 06-25 01:08
PROVIDERS: ADMIT Internal Medicine Cardiovascular Disease; ATTEND Internal Medicine Cardiovascular Disease
PROC: 027034Z Dilation of Coronary Artery, One Artery with Drug-eluting Intraluminal Device, Percutaneous Approach (ICD-10-PCS; principal; 2018-06-23)
PROC: 4A023N7 Measurement of Cardiac Sampling and Pressure, Left Heart, Percutaneous Approach (ICD-10-PCS; 2018-06-23)
PROC: B2111ZZ Fluoroscopy of Multiple Coronary Arteries using Low Osmolar Contrast (ICD-10-PCS; 2018-06-23)
PROC: B2151ZZ Fluoroscopy of Left Heart using Low Osmolar Contrast (ICD-10-PCS; 2018-06-23)
DX: I21.09 ST elevation (STEMI) myocardial infarction involving other coronary artery of anterior wall (principal); I50.43 Acute on chronic combined systolic (congestive) and diastolic (congestive) heart failure; I25.5 Ischemic cardiomyopathy; Z86.79 Personal history of other diseases of the circulatory system; E11.65 Type 2 diabetes mellitus with hyperglycemia; I25.10 Atherosclerotic heart disease of native coronary artery without angina pectoris; G47.33 Obstructive sleep apnea (adult) (pediatric); I11.0 Hypertensive heart disease with heart failure; I48.0 Paroxysmal atrial fibrillation; I51.3 Intracardiac thrombosis, not elsewhere classified; E66.9 Obesity, unspecified; Z68.36 Body mass index [BMI] 36.0-36.9, adult
CPT/HCPCS: 36415; 36416; 71045; 80048; 80053; 80061; 82550; 82553; 83036; 83880; 84443; 84484; 85025; 85347; 85610; 85730; 92928; 92977; 93005; 93010; 93306; 93458; 93798; 96374; C1725; C1757; C1769; C1874; C9600; J0153; J0282; J1644; J1815; J1825; J1940; J2270; J3010; J3246; J7070; Q9967

== ENCOUNTER 2018-07-22 09:19 | Inpatient (IN) | payer SELFPAY ==
[2018-07-22 09:48] LABS: #Eosinphils 0.1 thou/uL (0.0-0.7); #Lymphocytes 2.3 thou/uL (1.20-3.40); #Monocytes 0.4 thou/uL (0.11-0.59); #Neutrophils 3.6 thou/uL (1.40-6.50); %Basophils 0.6 % (0.0-1.0); %Eosinophils 1.6 % (0.0-10.0); %Lymphocytes 35.8 % (21.0-51.0); %Monocytes 6.4 % (0.0-10.0); %Neutrophils 55.5 % (42.0-75.0); Hemoglobin 13.6 g/dL (14.0-18.0); Mean Corpuscular HGB CONC 32.1 g/dL (32.0-36.0); Mean Corpuscular Hemoglobin 28.8 pg (27.0-31.0); Mean Corpuscular Volume 89.5 fL (78.0-98.0); Mean Platelet Volume 7.5 fL (7.4-10.4); Platelet Count 226 thou/uL (130-400); RBC Distribution Width 12.3 % (11.5-14.5); Red Blood Cell (RBC) Count 4.73 mill/uL (4.70-6.10); White Blood Cell (WBC) Count 6.5 thou/uL (4.8-10.8)
[2018-07-22 10:09] LABS: ALT (SGPT) 26 U/L (8-55); AST (SGOT) 15 U/L (5-34); Albumin 4.5 g/dL (3.5-5.0); Alkaline Phosphatase 73 U/L (40-150); Anion Gap 12 mmol/L (10-20); BUN (Urea Nitrogen) 18 mg/dL (8.9-20.6); Bilirubin, Total 0.8 mg/dL (0.2-1.2); CK (CPK) 88 U/L (30-200); Calc. Creatinine Clearance 0 mL/min (70-130); Calcium 9.8 mg/dL (7.8-10.44); Carbon Dioxide 25 mmol/L (22-29); Chloride 105 mmol/L (98-107); Estimated GFR-MDRD Greater than 90; Globulin 2.6 g/dL (2.4-3.5); Glucose 158 mg/dL (70-105); Protein, Total 7.1 g/dL (6.0-8.3); Sodium 138 mmol/L (136-145)
[2018-07-22] MEDS ORDERED: Aspirin Chewable 81 MG TAB ONE (10:17)
--- NOTE | 2018-07-22 10:54 | RAD ---
AP VIEW CHEST: Date: 07/22/18 HISTORY: Dyspnea. FINDINGS: Comparison made to previous exam from 06/23/18. AP view of chest demonstrates the lungs to be well aerated. No evidence of active intrathoracic disea se seen. No evidence of effusions, pneumonia, or pneumothorax seen. IMPRESSION: Unremarkable AP view chest. POS: [facility]
[2018-07-22] MEDS ORDERED: Sodium Chloride 0.65% Nasal 44 ML BOT EA NARE PRN (11:33)
[2018-07-22] MEDS ORDERED: Ondansetron PF 4 MG/2 ML Vial IVP PRN ×2 (11:33)
[2018-07-22] MEDS ORDERED: Bisacodyl 10 MG SUPP PR PRN (11:33)
[2018-07-22] MEDS ORDERED: Diabetic Tussin 200 MG/10 ML UDCUP PO PRN (11:33)
[2018-07-22] MEDS ORDERED: Acetaminophen 325 MG TAB PO PRN (11:33)
[2018-07-22] MEDS ORDERED: Calcium Carbonate 500 MG ChewTAB PO PRN (11:33)
[2018-07-22] MEDS ORDERED: Senokot S 8.6-50 MG TAB PO PRN ×2 (11:33)
[2018-07-22] MEDS ORDERED: Bisacodyl 5 MG TAB PO PRN ×2 (11:33)
[2018-07-22] MEDS ORDERED: Benzonatate 100 MG CAP PO PRN (11:33)
[2018-07-22] MEDS ORDERED: hydrALAZINE 20 MG/ML VIAL SLOW IVP PRN (11:33)
[2018-07-22] MEDS ORDERED: Nitroglycerin 0.4 MG TAB (25 Tab Bottle) SL PRN ×2 (11:33→11:36)
[2018-07-22] MEDS ORDERED: Dextrose 5% in Water 1,000 ML IV PRN (11:37)
[2018-07-22] MEDS ORDERED: HumaLOG 300 UNITS/3 ML VIAL SC PRN ×2 (11:37)
[2018-07-22] MEDS ORDERED: Dextrose 50% Abboject 50 ML SYRINGE SLOW IVP PRN (11:37)
--- NOTE | 2018-07-22 13:03 | HP ---
CHIEF COMPLAINT: Chest pain and shortness of breath. HISTORY OF PRESENTING ILLNESS: Mr. Andrea is a pleasant 47-year-old male with recent admission to our facility for ST-elevation UT, who presented to the ER with above-mentioned complaint. History is mainly obtained by the patient himself and electronic medical records have been reviewed. Case has been discussed with the emergency room physician. Mr. Andrea was recently admitted to our facility from 06/23/2018 to 06/28/2018. He was admitted under cardiology services under Dr. Gimenez. At that time, he was diagnosed with acute anterior ST-segment elevation UT and underwent left heart catheterization and drug-eluting stent to LAD. He had postoperative atrial fibrillation with RVR and was also found to have ischemic cardiomyopathy with EF of 20% to 25%, as well as a left ventricular thrombus. He was started appropriately on anti-platelet and anticoagulant therapy with Plavix, aspirin, and Eliquis. He was also started on a tapering dose of amiodarone for his paroxysmal atrial fibrillation. He was also diagnosed with diabetes mellitus during that hospitalization and was discharged on metformin as well. Mr. Andrea reports that he actually felt very well and he has been working up until yesterday. He is compliant with his medications. This morning, however, he started to have a sudden onset of sharp left-sided chest pain around 07:30 this morning. It was associated with shortness of breath. He describes it as a sharp sensation, 5/10 to 6/10 in intensity, associated with some dizziness. He denies any nausea, vomiting, palpitations. He denies any stroke-like symptoms including headache, vision loss, dysphagia, dysarthria, muscle weakness, or sensory impairment. He was brought into the emergency room by his family. Upon presentation, his blood pressure was 105/65 and he was saturating 99% on room air. Heart rate 77. A 12-lead EKG done in the emergency room showed normal sinus rhythm without any acute ST or T-wave changes. Cardiac enzymes in the emergency room were checked and were unremarkable at least once with a troponin of 0.017. His drafting engineer Dr. Gimenez was contacted and he recommended admission to Medicine Team for possible repeat cardiac catheterization tomorrow morning. I have also discussed the patient briefly with Dr. Gimenez, who will be consulting directly on this patient. He will be admitted to telemetry floor. In the emergency room, he received aspirin but nitroglycerin was held because of systolic blood pressure in the low 100s. The patient currently is having about a 5/10 intensity chest pain, but is comfortable and is refusing nitroglycerin. PAST MEDICAL HISTORY: 1. Acute anterior ST-elevation UT June 2018, status post drug-eluting stent to LAD. New onset atrial fibrillation on chronic anticoagulation with Eliquis. 2. Ischemic cardiomyopathy with EF of 20% to 25%. 3. New diagnosis of diabetes mellitus type 2. 4. Hypertension. 5. Left ventricular thrombus, on chronic anticoagulation with Eliquis. 6. Morbid obesity. PAST SURGICAL HISTORY: 1. Left heart catheterization in June 2018, stenting June 2018. 2. Past hernia repair. 3. Left knee surgery. OUTPATIENT MEDICATIONS: The patient was discharged on the following medications on 06/28/2018. 1. Eliquis 5 mg p.o. b.i.d. 2. Amiodarone currently taking 200 mg daily. 3. Aspirin 81 mg daily. 4. Atorvastatin 80 mg daily. 5. Carvedilol 3.125 mg b.i.d. 6. Plavix 75 mg a day. 7. Humulin 70/30, 12 units b.i.d. 8. Lisinopril 2.5 mg daily. 9. Metformin 500 b.i.d. 10. Sublingual nitroglycerin p.r.n. for chest pain. ALLERGIES: NO KNOWN MEDICATION ALLERGIES. 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 No history of drug, tobacco, or alcohol abuse. FAMILY HISTORY: Significant for father having his first UT at the age of 45. He has had 10 stents total. As well as an AICD. REVIEW OF SYSTEMS: A 14-point review of system is done, it is negative except for those mentioned in the history and physical. LABORATORY DATA: His CBC is unremarkable today. Serum chemistries unremarkable. Blood sugar 158. Troponin 0.017. Chest x-ray by my review shows no evidence of pleural effusion, edema, or infiltrate. A 12-lead EKG done in the emergency room by my review shows normal sinus rhythm without any acute ST or T-wave changes. PHYSICAL EXAMINATION: VITAL SIGNS: Upon presentation, blood pressure 105/65, pulse of 77, respirations 16, temperature 97.7, saturating 99% on room air. GENERAL: He appears somewhat uncomfortable but is awake, alert, and oriented x3. is at bedside. HEENT: Mucous membrane is moist and pink. No oropharyngeal exudate or erythema. Head is normocephalic and atraumatic. Pupils are equal and reactive to light and accommodation. Extraocular movement intact. NECK: Supple without any lymphadenopathy, JVD, or bruit. CHEST: Clear to auscultation without any wheezing, rales, or rhonchi. HEART: Rate and rhythm is regular without any murmurs, rubs, or gallops. ABDOMEN: Soft, nontender, nondistended with positive bowel sounds. EXTREMITIES: Free of any cyanosis, clubbing, or edema. NEUROLOGICAL: Examination is nonfocal. SKIN: Free of any rashes or bruises, feels warm and dry to touch. PSYCHIATRIC: Normal affect. IMPRESSION AND PLAN: 1. Unstable angina. The patient recently had an LAD stenting done and his symptoms are quite suggestive of unstable angina for now. He has received aspirin in the emergency room and we will use p.r.n. sublingual nitroglycerin if his blood pressure permits. I have discussed this briefly with his drafting engineer, Dr. Gimenez who plans to take him to the cardiac slab off mill tender tomorrow morning again. He will be made n.p.o. after midnight. As per Cardiology instructions, we will continue the Plavix for now. We will hold Eliquis in preparation for cardiac cath tomorrow. The patient is at high risk for decompensation with severe ischemic cardiomyopathy and a left ventricular thrombus as well as severe LAD disease. He will be monitored on telemetry unit. I have discussed the plan with the patient and his family and they verbalized understanding. 2. Chest pain. This is secondary to unstable angina, plan as above. Monitor clinically. Currently hemodynamically stable. He will avoid any IV fluids given his poor ejection fraction recently. 3. Ischemic cardiomyopathy. The patient is compliant with his LifeVest. We will repeat the echocardiogram to make sure that there is no further reduction in his EF. Continue cardiac prudent medications of carvedilol, Plavix, and p.r.n. sublingual nitroglycerin. We will hold lisinopril for now as the blood pressure is on the lower side. 4. Atrial fibrillation. Currently normal sinus rhythm. We will continue with amiodarone. Hold Eliquis in preparation for possible cardiac catheterization in the morning tomorrow. We will monitor on telemetry. 5. Left ventricular thrombus. The patient will be restarted on his anticoagulation after the cardiac catheterization if okay with Cardiology. Currently stable. 6. Coronary artery disease. Restart beta katy, Plavix and statin. He did get one dose of aspirin in the ER and we will hold further aspirin until cardiac catheterization. Hold lisinopril due to low blood pressure. 7. Diabetes mellitus. We will hold metformin as the patient will be receiving contrast and is at high risk for renal injury. We will use insulin sliding scale in the hospital with frequent Accu-Chek. 8. Morbid obesity. 9. Deep venous thrombosis and gastrointestinal prophylaxis. DISPOSITION: Mr. Andrea is currently being admitted for unstable angina. Estimated length of stay at this time is less than 2 midnights. Further management will depend upon his clinical course. Job ID: [id number] MTDD
[2018-07-22 15:11] LABS: Troponin I 0.019 ng/mL (< 0.028)
[2018-07-22 17:40] VITALS: BMI 36.6
[2018-07-22] MEDS: Carvedilol 3.125 MG TAB PO SCH (17:51)
--- NOTE | 2018-07-22 18:17 | CON ---
DATE OF CONSULTATION: 07/22/2018 REASON FOR CONSULTATION: Chest pain. HISTORY OF PRESENT ILLNESS: Mr. Andrea is a very pleasant 47-year-old white gentleman, who comes to the hospital for chest pain. He was seen in the hospital about a month ago for an anterior ST-elevation PA. He was taken to the catheterization lab and had successful stenting of his LAD. He had severe LV dysfunction afterwards with LV thrombus. He had a late presentation, so his EF is about 20% to 25% initially. He was started on Plavix, aspirin, and Eliquis given his LV thrombus. He has a residual left circumflex disease that is focal and severe that will need to be stented as well. He states that he was at home in usual state of health and has started having chest pain similar to what he had before his heart attack, so he became concerned, and decided to come in for further evaluation. PAST MEDICAL HISTORY: 1. Anterior ST-elevation PA just a month ago. 2. Atrial fibrillation after his acute PA. 3. Ischemic cardiomyopathy with EF to 20% to 25%. 4. Type 2 diabetes. 5. Hypertension. 6. LV thrombus, on chronic anticoagulation with Eliquis. 7. Morbid obesity. PAST SURGICAL HISTORY: 1. Heart catheterization in June with stenting as above. 2. Hernia repair. 3. Left knee surgery. OUTPATIENT MEDICATIONS: 1. Eliquis 5 mg b.i.d. 2. Amiodarone 200 mg a day. 3. Aspirin 81 a day. 4. Atorvastatin 80 mg a day. 5. Carvedilol 3.125 b.i.d. 6. Plavix 75 mg a day. 7. Humulin 70/30, 16 units b.i.d. 8. Lisinopril 2.5 mg a day. 9. Metformin 500 mg b.i.d. 10. Sublingual nitroglycerin p.r.n. for pain. ALLERGIES: NO KNOWN DRUG ALLERGIES. SOCIAL HISTORY: No alcohol, tobacco, or drugs. 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 FAMILY HISTORY: Father had PA at age 45. REVIEW OF SYSTEMS: A 12-point review of systems was done and was found to be negative unless stated in the history of present illness. PHYSICAL EXAMINATION: VITAL SIGNS: Temperature 98.5, pulse 78, respiratory rate 19, saturating 98% on room air, and blood pressure 122/81. GENERAL: Awake, alert, and oriented x3. In no distress. HEENT: Normocephalic and atraumatic. NECK: Supple. LUNGS: Clear. CARDIOVASCULAR: S1 and S2. No S3 or S4. No murmurs. No rubs. ABDOMEN: Soft. Positive bowel sounds. EXTREMITIES: No edema. SKIN: Warm and dry. LABORATORY DATA: Laboratory work was reviewed. CBC with a white count of 6.5, hemoglobin 13.6, hematocrit 42, and platelet count 226. Chemistry was unremarkable. GFR is greater than 90. Troponin is negative x2. Albumin of 4.5. Chest x-ray was unremarkable. ASSESSMENT/PLAN: 1. Chronic stable angina. 2. Coronary artery disease, status post stenting to the LAD with residual left circumflex disease. PLAN: Most likely he is having pain from his residual left circumflex disease. We will plan on taking him to the catheterization lab with intention of stenting the left circumflex because there is a focal lesion amenable to revascularization with stenting. We spoke about risks and benefits of the procedure. Risks included, but are not limited to stroke, PA, , bleeding, need for blood transfusion, limb loss, and organ loss. He understands and verbalized of this and agrees to proceed. We will try to do a radial approach to minimize the risk of bleeding as his last dose of Eliquis was yesterday evening. Thank you for letting me to participate in the care of your patient. Job ID: [id number]
[2018-07-22 18:24] LABS: Troponin I 0.011 ng/mL (< 0.028)
[2018-07-22] MEDS ORDERED: Atorvastatin Calcium 40 MG TAB PO SCH (21:00)
[2018-07-22] MEDS ORDERED: Amiodarone 200 MG TAB PO SCH (21:00)
[2018-07-22] MEDS: Famotidine/PF 20 mg/2ml Vial SLOW IVP SCH (21:12)
[2018-07-23 05:09] LABS: #Basophils 0.1 thou/uL (0.0-0.2); #Eosinphils 0.2 thou/uL (0.0-0.7); #Lymphocytes 2.7 thou/uL (1.20-3.40); #Monocytes 0.6 thou/uL (0.11-0.59); #Neutrophils 4.8 thou/uL (1.40-6.50); %Basophils 0.8 % (0.0-1.0); %Eosinophils 1.9 % (0.0-10.0); %Lymphocytes 32.5 % (21.0-51.0); %Monocytes 6.7 % (0.0-10.0); Hemoglobin 13.6 g/dL (14.0-18.0); Mean Corpuscular HGB CONC 34.2 g/dL (32.0-36.0); Mean Corpuscular Hemoglobin 30.7 pg (27.0-31.0); Mean Corpuscular Volume 89.9 fL (78.0-98.0); Mean Platelet Volume 8.2 fL (7.4-10.4); Platelet Count 210 thou/uL (130-400); RBC Distribution Width 12.5 % (11.5-14.5); Red Blood Cell (RBC) Count 4.42 mill/uL (4.70-6.10); White Blood Cell (WBC) Count 8.3 thou/uL (4.8-10.8)
[2018-07-23 05:25] LABS: Anion Gap 13 mmol/L (10-20); BUN (Urea Nitrogen) 12 mg/dL (8.9-20.6); Calc. Creatinine Clearance 204 mL/min (70-130); Calcium 9.2 mg/dL (7.8-10.44); Carbon Dioxide 21 mmol/L (22-29); Chloride 108 mmol/L (98-107); Estimated GFR-MDRD Greater than 90; Glucose 140 mg/dL (70-105); Sodium 138 mmol/L (136-145)
[2018-07-23] MEDS: Famotidine/PF 20 mg/2ml Vial SLOW IVP SCH (08:23)
[2018-07-23] MEDS: Carvedilol 3.125 MG TAB PO SCH (08:23)
[2018-07-23] MEDS ORDERED: Amiodarone 200 MG TAB PO SCH (09:00)
[2018-07-23] MEDS ORDERED: Clopidogrel Bisulfate 75 MG TAB PO SCH (09:00)
[2018-07-23] MEDS ORDERED: Midazolam HCl 2 mg/2 ml Vial ONE (12:02)
[2018-07-23] MEDS ORDERED: Fentanyl 100 MCG/2 ML VIAL ONE (12:02)
[2018-07-23] MEDS ORDERED: Verapamil 5 MG/2 ML VIAL ONE (12:12)
[2018-07-23] MEDS ORDERED: Nitroglycerin 100MG/250ML BOT 250 ML ONE (12:12)
[2018-07-23] MEDS ORDERED: Heparin 10,000 UNITS/1 ML VIAL ONE (12:12)
[2018-07-23] MEDS ORDERED: Clopidogrel Bisulfate 300 MG TAB ONE (12:53)
[2018-07-23] MEDS ORDERED: Aspirin 81 mg Enteric Coated Tablet PO SCH (15:00)
[2018-07-23 15:32] VITALS: BP 111/73; TEMP 98.2
[2018-07-23] MEDS ORDERED: Iopamidol 370 76% 100 ML VIAL ONE (16:59)
[2018-07-23] MEDS ORDERED: Iopamidol 370 76% 50 ML VIAL FS ONE (16:59)
[2018-07-24] MEDS ORDERED: Aspirin 81 mg Enteric Coated Tablet PO SCH (09:00)
--- NOTE | 2018-07-24 10:08 | DIS ---
DATE OF ADMISSION: 07/22/2018 DATE OF DISCHARGE: 07/23/2018 DISCHARGE DISPOSITION: Home. FOLLOWUP: 1. Follow up with primary care physician, Dr. Aguirre in 1 week. 2. Follow up with Dr. Gimenez as scheduled. ALLERGIES: NO KNOWN DRUG ALLERGIES. MEDICATIONS: The patient was advised to resume metformin after 48 hours. He was also advised to resume Eliquis tomorrow. No changes in his medications were made. BRIEF HOSPITAL COURSE: The patient is a 47-year-old male with recent ST-elevation MA, presented to the emergency room with chest discomfort and shortness of breath. Please refer to the history and physical for further details. The patient was admitted to the hospital with a diagnosis of unstable angina. He was monitored in the telemetry unit. Serial troponins were negative. He underwent cardiac catheterization with left circumflex stent placement. He will continue aspirin and Plavix. He was advised to resume Eliquis tomorrow. He has been cleared by Cardiology for discharge. FINAL DIAGNOSES: 1. Chest discomfort suspected due to unstable angina. 2. Coronary artery disease with left circumflex stent placement. He also has a history of left anterior descending stent in the past. 3. Chronic atrial fibrillation, on anticoagulation. 4. Recent anterior ST-elevation myocardial infarction. 5. Ischemic cardiomyopathy with ejection fraction 20% to 25% - chronic systolic heart failure. He will continue NORY inhibitors and beta-katy. 6. Diabetes mellitus, type 2. 7. Hypertension. 8. History of left ventricular thrombus, on chronic anticoagulation. 9. Obesity with a BMI of 36.7. 10. Mild chronic anemia. SIGNIFICANT LABS: Recent fasting lipid profile showed LDL of 118, HDL 31, triglycerides 115 with cholesterol 172. Job ID: [id number]
== END 2018-07-23 17:13 | disposition home or self-care (01) | DRG 247 ==
LOC: ERS 09:19 → OBSVTOIN 12:53 → ERHOLD 12:53 → INTOOBSV 12:53 → 2SW 17:38
PROVIDERS: ADMIT Internal Medicine; ATTEND Internal Medicine
PROC: 027034Z Dilation of Coronary Artery, One Artery with Drug-eluting Intraluminal Device, Percutaneous Approach (ICD-10-PCS; principal; 2018-07-22)
PROC: 4A023N7 Measurement of Cardiac Sampling and Pressure, Left Heart, Percutaneous Approach (ICD-10-PCS; 2018-07-22)
PROC: B2111ZZ Fluoroscopy of Multiple Coronary Arteries using Low Osmolar Contrast (ICD-10-PCS; 2018-07-22)
DX: I25.110 Atherosclerotic heart disease of native coronary artery with unstable angina pectoris (principal); I24.0 Acute coronary thrombosis not resulting in myocardial infarction; I50.22 Chronic systolic (congestive) heart failure; I25.2 Old myocardial infarction; E11.9 Type 2 diabetes mellitus without complications; Z79.01 Long term (current) use of anticoagulants; E66.01 Morbid (severe) obesity due to excess calories; Z68.36 Body mass index [BMI] 36.0-36.9, adult; I25.5 Ischemic cardiomyopathy; I48.2 Chronic atrial fibrillation; I11.0 Hypertensive heart disease with heart failure; D64.89 Other specified anemias
CPT/HCPCS: 36415; 36416; 71045; 80048; 80053; 82550; 84484; 85025; 85347; 92928; 93005; 93306; 93454; 94760; 99152; C1769; C9600; J1644; J2250; J3010; Q9967; S0028

== ENCOUNTER 2025-02-05 11:55 | Inpatient (IN) | payer BC, SELFPAY ==
[2025-02-05] MEDS ORDERED: Iopamidol-370 76% 500 ML MDV (1 ML CHARGE) ONE (12:31)
[2025-02-05 12:51] LABS: #Basophils 0.08 10x3/uL (0.0-0.2); #Eosinophils 0.04 10x3/uL (0.0-0.7); #Monocytes 1.34 10x3/uL (0.11-0.59); #Neutrophils 10.56 10x3/uL (1.40-6.50); %Basophils 0.5 % (0.0-1.0); %Eosinophils 0.3 % (0.0-10.0); %Lymphocytes 19.3 % (21.0-51.0); %Monocytes 8.9 % (0.0-10.0); %Neutrophils 70.3 % (42.0-75.0); Hematocrit 55.0 % (42.0-52.0); Hemoglobin 18.3 g/dL (14.0-18.0); Mean Corpuscular Hemoglobin 29.7 pg (27.0-31.0); Mean Corpuscular Volume 88.7 fL (78.0-98.0); Platelet Count 302 10x3/uL (130-400); Red Blood Cell (RBC) Count 6.17 mill/uL (4.70-6.10); White Blood Cell (WBC) Count 15.03 10x3/uL (4.8-10.8)
[2025-02-05 12:52] LABS: Bacteria/HPF None Seen HPF (None Seen); CAUTI Indications for Culture Pelvic or flank pain; Glucose, Urine (Dipstick) Greater than 1000 mg/dL (Negative); Leukocyte Negative Leu/uL (Negative); Protein, Urine (Dipstick) Negative (Neg-Trace); RBC/HPF 0-3 HPF (0-3); Specific Gravity, Urine 1.028 (1.002-1.036); WBC/HPF 0-3 HPF (0-3)
[2025-02-05 12:54] LABS: Urine Culture Reflex No No
[2025-02-05 13:10] LABS: ALT (SGPT) 18 U/L (Less than 45); AST (SGOT) 17 U/L (11-34); Albumin 4.7 g/dL (3.1-4.5); Alkaline Phosphatase 87 U/L (40-110); Anion Gap 25 mmol/L (10-20); BUN (Urea Nitrogen) 15 mg/dL (8.4-25.7); Bilirubin, Total 0.8 mg/dL (0.3-1.2); Calc. Creatinine Clearance 0 mL/min (70-130); Calcium 9.8 mg/dL (7.8-10.44); Carbon Dioxide 16 mmol/L (22-29); Chloride 100 mmol/L (98-107); Globulin 3.1 g/dL (2.4-3.5); Glucose 117 mg/dL (70-105); Potassium 4.6 mmol/L (3.5-5.1); Sodium 136 mmol/L (136-145)
[2025-02-05 13:13] LABS: Lipase 345 U/L (8-78)
[2025-02-05] MEDS ORDERED: Droperidol 5 MG/2 ML VIAL ONE (14:21)
[2025-02-05] MEDS ORDERED: Dextrose 50% Abboject 50 ML SYRINGE SLOW IVP PRN (17:01)
[2025-02-05] MEDS ORDERED: Glucagon 1 MG/ML KIT IM PRN (17:01)
[2025-02-05] MEDS ORDERED: Senokot S 8.6-50 MG TAB PO PRN (17:10)
[2025-02-05] MEDS ORDERED: Acetaminophen 325 MG TAB PO PRN (17:10)
[2025-02-05] MEDS ORDERED: Bisacodyl 10 MG SUPP PR PRN (17:10)
[2025-02-05] MEDS ORDERED: Electrolyte Replacement Protocol 1 EACH FS SCH (17:15)
[2025-02-05] MEDS ORDERED: Magnesium 2 GM/50 ML(in water) 2 GM in Premix 1 BAG IVPB PRN (17:15)
[2025-02-05] MEDS ORDERED: PHOS-NAK 1 PKT PACK PO PRN (17:15)
[2025-02-05] MEDS ORDERED: Potassium Chloride 20 MEQ in Premix 1 BAG IVPB PRN (17:15)
[2025-02-05 17:31] LABS: Magnesium 2.0 mg/dL (1.6-2.6)
[2025-02-05] MEDS: Ondansetron PF 4 MG/2 ML Vial IVP PRN (17:51)
[2025-02-05 18:17] VITALS: BMI 34.9
[2025-02-05] MEDS ORDERED: hydrALAZINE 20 MG/ML VIAL SLOW IVP PRN (18:35)
[2025-02-05] MEDS: Apixaban 5 MG TAB PO SCH (20:40)
[2025-02-06 06:38] LABS: #Basophils 0.03 10x3/uL (0.0-0.2); #Eosinophils 0.16 10x3/uL (0.0-0.7); #Monocytes 1.15 10x3/uL (0.11-0.59); #Neutrophils 7.56 10x3/uL (1.40-6.50); %Basophils 0.3 % (0.0-1.0); %Eosinophils 1.4 % (0.0-10.0); %Lymphocytes 23.0 % (21.0-51.0); %Monocytes 9.9 % (0.0-10.0); %Neutrophils 64.9 % (42.0-75.0); Hematocrit 46.2 % (42.0-52.0); Hemoglobin 15.4 g/dL (14.0-18.0); Mean Corpuscular Hemoglobin 29.8 pg (27.0-31.0); Mean Corpuscular Volume 89.4 fL (78.0-98.0); Platelet Count 200 10x3/uL (130-400); Red Blood Cell (RBC) Count 5.17 mill/uL (4.70-6.10); White Blood Cell (WBC) Count 11.63 10x3/uL (4.8-10.8)
[2025-02-06 07:02] LABS: ALT (SGPT) 12 U/L (Less than 45); AST (SGOT) 15 U/L (11-34); Albumin 3.7 g/dL (3.1-4.5); Alkaline Phosphatase 67 U/L (40-110); Anion Gap 16 mmol/L (10-20); BUN (Urea Nitrogen) 9 mg/dL (8.4-25.7); Bilirubin, Total 0.5 mg/dL (0.3-1.2); Calc. Creatinine Clearance 219 mL/min (70-130); Calcium 8.5 mg/dL (7.8-10.44); Carbon Dioxide 15 mmol/L (22-29); Chloride 107 mmol/L (98-107); Globulin 2.5 g/dL (2.4-3.5); Glucose 101 mg/dL (70-105); Lipase 183 U/L (8-78); Potassium 4.2 mmol/L (3.5-5.1); Sodium 134 mmol/L (136-145)
[2025-02-06] MEDS: Aspirin 81 mg Enteric Coated Tablet PO SCH (08:52)
[2025-02-06] MEDS: Rosuvastatin 20 MG TAB PO SCH (08:52)
[2025-02-06] MEDS: Lisinopril 10 MG TAB PO SCH (08:52)
[2025-02-06] MEDS: metFORMIN XR 500 MG ER.TAB PO SCH (08:53)
[2025-02-06] MEDS: Ezetimibe 10 MG TAB PO SCH (08:53)
[2025-02-07 08:33] VITALS: BP 145/84; TEMP 98.5
== END 2025-02-07 12:56 | disposition home or self-care (01) | DRG 440 ==
LOC: ERS 11:55 → T4-B 16:20 → OBSVTOIN 02-06 14:35
PROVIDERS: ADMIT Internal Medicine; ATTEND Family Medicine
DX: K85.90 Acute pancreatitis without necrosis or infection, unspecified (principal); I10 Essential (primary) hypertension; E78.5 Hyperlipidemia, unspecified; I25.10 Atherosclerotic heart disease of native coronary artery without angina pectoris; I25.2 Old myocardial infarction; I48.0 Paroxysmal atrial fibrillation; E11.9 Type 2 diabetes mellitus without complications; K59.00 Constipation, unspecified; E86.0 Dehydration; K80.20 Calculus of gallbladder without cholecystitis without obstruction; I25.5 Ischemic cardiomyopathy; Z79.899 Other long term (current) drug therapy; N28.1 Cyst of kidney, acquired; T50.995A Adverse effect of other drugs, medicaments and biological substances, initial encounter
CPT/HCPCS: 36415; 36416; 74177; 80053; 81001; 83605; 83615; 83690; 83735; 84100; 84443; 84478; 84484; 85025; 87040; 87086; 93005; 96374; 96375; 96376; G0378; J1790; J2270; J2405; J3010; J7120; Q9967